=== PATIENT | male | born 1960 | race Caucasian/White ===

== ENCOUNTER 2016-11-24 15:28 | Emergency (ER) | payer MEDICARE ==
[2016-11-24] MEDS ORDERED: SODIUM CHLORIDE 0.9% 1,000 ML ONE (17:40)
[2016-11-24] MEDS ORDERED: humuLIN REG INSULIN ONE (18:04)
== END 2016-11-24 20:57 | disposition home or self-care (01) ==
LOC: ER 15:28
DX: J20.8 Acute bronchitis due to other specified organisms (principal); Z95.5 Presence of coronary angioplasty implant and graft; E11.9 Type 2 diabetes mellitus without complications; N28.9 Disorder of kidney and ureter, unspecified; I11.9 Hypertensive heart disease without heart failure; J44.9 Chronic obstructive pulmonary disease, unspecified; Z79.82 Long term (current) use of aspirin; Z79.899 Other long term (current) drug therapy; Z79.84 Long term (current) use of oral hypoglycemic drugs
CPT/HCPCS: 36415; 71020; 80053; 81001; 82947; 83605; 85025; 87040; 87077; 87088; 87186; 87804; 96360